=== PATIENT | male | born 1985 | race Two or more races ===

== ENCOUNTER 2016-11-03 07:10 | Emergency (ER) | payer OTHER ==
[2016-11-03 07:17] VITALS: BP 109/60
[2016-11-03] MEDS ORDERED: Rabies Vaccine, PCEC INJ* 1 ml IM ONE (07:35)
--- NOTE | 2016-11-03 07:39 | UC ---
Yoli Mendoza Rebecca, scribed for Gianna Ackerman MD on 11/03/16 at 0732 . General HPI - HPI Summary HPI Summary: Pt is a 30 y/o M who presents to [facility] s/p bat exposure for a day 3 rabies vacciantion. Pt reports that he had a bat in the bedroom which he was able to catch then let go. Confirms he is feeling well after the initial vaccinations. Has no complaints at this time. - History of Current Complaint Chief Complaint: UCGeneralIllness Stated Complaint: RABIES EXPOSURE Time Seen by Provider: 11/03/16 07:31 Hx Obtained From: Patient Onset/Duration: Still Present - Presents for day 3 rabies vaccination Current Severity: None Pain Intensity: 0 Pain Location at: Negative - Allergy/Home Medications Allergies/Adverse Reactions: Allergies Allergy/AdvReac Type Severity Reaction Status Date / Time No Known Allergies Allergy Verified 03/18/15 11:21 Home Medications: Home Medications NK [No Home Medications Reported] 11/03/16 [History Confirmed 11/03/16] PMH/Surg Hx/FS Hx/Imm Hx Previously Healthy: Yes - Surgical History Surgical History: None - Social History Occupation: [employer] Lives: Alone Alcohol Use: None Substance Use Type: None Smoking Status (MU): Never Smoked Tobacco Review of Systems Constitutional: Other - Rabies exposure Skin: Negative Eyes: Negative ENT: Negative Respiratory: Negative Cardiovascular: Negative Gastrointestinal: Negative Genitourinary: Negative Motor: Negative Neurovascular: Negative Musculoskeletal: Negative Neurological: Negative Psychological: Negative All Other Systems Reviewed And Are Negative: Yes Physical Exam Triage Information Reviewed: Yes Appearance: Well-Appearing Vital Signs: Initial Vital Signs Temp 98.9 F 11/03/16 07:14 Pulse 64 11/03/16 07:14 Resp 16 11/03/16 07:14 BP 109/60 11/03/16 07:14 Pulse Ox 100 11/03/16 07:14 ENT Exam: Normal Respiratory: Positive: Lungs clear, Normal breath sounds Cardiovascular: Positive: RRR, No Murmur Skin Exam: Normal Course/Dx - Course Course Of Treatment: rabies immunization given - Differential Dx - Multi-Symptom Provider Diagnoses: pssible rabies exposure Discharge - Discharge Plan Condition: Stable Disposition: HOME Patient Education Materials: Rabies Vaccine (By injection) Additional Instructions: Continue the advised schedule for rabies immunization. The documentation as recorded by the scribe, DiFabio,Janelle accurately reflects the service I personally performed and the decisions made by me, Gianna Ackerman MD.
== END 2016-11-03 08:36 | disposition home or self-care (01) ==
LOC: UCEAST 07:10
DX: Z20.3 Contact with and (suspected) exposure to rabies (principal)
CPT/HCPCS: 90471; 90675; 99211; G0463